=== PATIENT | male | born 1975 | race Two or more races ===

== ENCOUNTER 2016-04-14 13:52 | Emergency (ER) | payer SELFPAY ==
[~2016-04-14] VITALS: Ht 160 cm; Wt 99.8 kg
[2016-04-14] MEDS ORDERED: NKM (14:09)
[2016-04-14 14:17] VITALS: BP 203/140
[2016-04-14] MEDS ORDERED: Lisinopril 10mg tab ORAL ONE (14:30)
[2016-04-14 14:40] LABS: BASOPHILS % (AUTO) 1.7 % (0.0-2.0); EOSINOPHILS % (AUTO) 0.7 % (0.0-3.0); LYMPHOCYTES % (AUTO) 19.5 % (20.0-45.0); MEAN CORPUSCULAR HEMOGLOBIN 31.4 PG (27.0-31.0); MEAN CORPUSCULAR HGB CONC 33.8 G/DL (32.0-36.0); MEAN CORPUSCULAR VOLUME 93 FL (80-99); MEAN PLATELET VOLUME 6.7 FL (6.5-10.1); MONOCYTES % (AUTO) 7.4 % (1.0-10.0); NEUTROPHILS % (AUTO) 70.7 % (45.0-75.0); PLATELET COUNT 277 K/UL (150-450); RED BLOOD COUNT 5.45 M/UL (4.70-6.10); RED CELL DISTRIBUTION WIDTH 12.6 % (11.6-14.8); WHITE BLOOD COUNT 7.7 K/UL (4.8-10.8)
[2016-04-14 14:47] VITALS: BP 166/90
[2016-04-14 14:48] LABS: PROTHROMBIN TIME 10.1 SEC (9.30-11.50)
[2016-04-14 14:55] LABS: TROPONIN I < 0.30 ng/mL (<=0.30)
[2016-04-14 14:58] LABS: ALANINE AMINOTRANSFERASE 46 U/L (3-41); ALBUMIN/GLOBULIN RATIO 1.4 (1.0-2.7); ANION GAP 16 (5-15); ASPARTATE AMINO TRANSFERASE 32 U/L (5-40); CARBON DIOXIDE 26 mEQ/L (20-30); CHLORIDE 94 mEQ/L (98-107); CREATININE 1.1 mg/dL (0.7-1.2); GLOMERULAR FILTRATION RATE > 60 mL/min (>60); HEMOLYSIS 6; POTASSIUM 3.2 mEQ/L (3.4-4.9); SODIUM 136 mEQ/L (135-145); TOTAL PROTEIN 7.8 g/dL (6.6-8.7)
[2016-04-14 15:03] VITALS: BP 166/90
--- NOTE | 2016-04-14 15:05 | Emergency Room Report ---
History of Present Illness General Chief Complaint: Hypertension Source: Patient Present Illness HPI This patient presents at the request of his primary care physician. He states that he went to his primary care today because he has had recurrent nosebleeds starting 5 days ago. He states that the nosebleeds the last about an hour and resolved. He states that he had another nosebleed this morning and so he decided to see his primary care physician. He presented to the primary care physician's office he was found have a systolic blood pressure over 200. His primary care physician sent him to the emergency department for further evaluation. He does admit he has had recent this family stress in his life. He is denies chest pain or shortness of breath. He denies abdominal pain. He denies headache or blurry vision. He has no other complaints. He does admit that he had been started on blood pressure medications about 6 months ago and did not take them. He states that he just was careless. He has no specific reason for the noncompliance. Allergies: Coded Allergies: No Known Allergies (Unverified , 04/14/16) Patient History Past Medical History: HTN Past Surgical History: none Social History: Reports: alcohol use - occassional, Denies: drug use, smoking Reviewed Nursing Documentation: PMH: Agreed, PSxH: Agreed Nursing Documentation-PMH Past Medical History: No History, Except For Hx Hypertension: Yes Review of Systems All Other Systems: negative except mentioned in HPI Physical Exam Vital Signs Date Time Temp Pulse Resp B/P Pulse Ox O2 Delivery O2 Flow Rate FiO2 04/14/16 14:05 99.0 95 20 203/140 98 Room Air Sp02 EP Interpretation: reviewed, normal General Appearance: no apparent distress, alert, GCS 15, non-toxic Head: normocephalic, atraumatic Eyes: bilateral eye PERRL, bilateral eye normal inspection ENT: hearing grossly normal, normal pharynx, no angioedema, normal voice, other - Dried blood bilateral nares Neck: full range of motion, supple/symm/no masses Respiratory: chest non-tender, lungs clear, normal breath sounds, speaking full sentences Cardiovascular #1: regular rate, rhythm, no edema Gastrointestinal: normal bowel sounds, non tender, soft, non-distended, no guarding, no rebound Rectal: deferred Musculoskeletal: back normal, gait/station normal, normal range of motion, non- tender Neurologic: alert, oriented x3, responsive, motor strength/tone normal, sensory intact, speech normal Psychiatric: judgement/insight normal, memory normal, mood/affect normal, no suicidal/homicidal ideation Skin: normal color, no rash, warm/dry, well hydrated Medical Decision Making Diagnostic Impression: Primary Impression: Hypertension ER Course This patient presents with hypertension. He has had intermittent nosebleeds over the past weekend and saw his primary care physician. I did go ahead and do basic laboratory workup to include a CBC, CMP, cardiac enzymes and EKG to assess for end organ damage. The patient's blood pressure declined spontaneously to a systolic of 160 here in the emergency department. However, given that he was elevated here and that his primary care physician I felt that I should start oral antihypertensive medication. He was given lisinopril orally. Blood pressure at discharge was 152/80. This patient was instructed to keep her blood pressure log. He is also instructed to followup closely at his primary care physician as likely his own meds will need to be titrated further to get proper long-term control of his blood pressure. Labs Test 04/14/16 14:30 White Blood Count 7.7 K/UL (4.8-10.8) Red Blood Count 5.45 M/UL (4.70-6.10) Hemoglobin 17.1 G/DL (14.2-18.0) Hematocrit 50.6 % (42.0-52.0) Mean Corpuscular Volume 93 FL (80-99) Mean Corpuscular Hemoglobin 31.4 PG (27.0-31.0) Mean Corpuscular Hemoglobin Concent 33.8 G/DL (32.0-36.0) Red Cell Distribution Width 12.6 % (11.6-14.8) Platelet Count 277 K/UL (150-450) Mean Platelet Volume 6.7 FL (6.5-10.1) Neutrophils (%) (Auto) 70.7 % (45.0-75.0) Lymphocytes (%) (Auto) 19.5 % (20.0-45.0) Monocytes (%) (Auto) 7.4 % (1.0-10.0) Eosinophils (%) (Auto) 0.7 % (0.0-3.0) Basophils (%) (Auto) 1.7 % (0.0-2.0) Prothrombin Time 10.1 SEC (9.30-11.50) Prothromb Time International Ratio 1.0 (0.9-1.1) Activated Partial Thromboplast Time 29 SEC (23-33) Sodium Level 136 mEQ/L (135-145) Potassium Level 3.2 mEQ/L (3.4-4.9) Chloride Level 94 mEQ/L (98-107) Carbon Dioxide Level 26 mEQ/L (20-30) Anion Gap 16 (5-15) Blood Urea Nitrogen 10 mg/dL (7-23) Creatinine 1.1 mg/dL (0.7-1.2) Estimat Glomerular Filtration Rate > 60 mL/min (>60) Glucose Level 107 mg/dL (74-106) Calcium Level 9.0 mg/dL (8.6-10.2) Total Bilirubin 0.6 mg/dL (0.0-1.2) Aspartate Amino Transf (AST/SGOT) 32 U/L (5-40) Alanine Aminotransferase (ALT/SGPT) 46 U/L (3-41) Alkaline Phosphatase 62 U/L (40-129) Total Creatine Kinase 203 U/L (38-174) Creatine Kinase MB 2.3 ng/mL (< 6.7) Creatine Kinase MB Relative Index 1.1 Troponin I < 0.30 ng/mL (<=0.30) Total Protein 7.8 g/dL (6.6-8.7) Albumin 4.6 g/dL (3.5-5.2) Globulin 3.2 g/dL Albumin/Globulin Ratio 1.4 (1.0-2.7) EKG Diagnostic Results Rate: normal Rhythm: NSR ST Segments: no acute changes Rhythm Strip Diag. Results EP Interpretation: yes Rate: 90's Rhythm: NSR, no PVC's, no ectopy Last Vital Signs Date Time Temp Pulse Resp B/P Pulse Ox O2 Delivery O2 Flow Rate FiO2 04/14/16 14:47 90 20 166/90 98 Room Air 04/14/16 14:17 99.0 Disposition: HOME, SELF-CARE Condition: Improved Patient Instructions: High Blood Pressure (Hypertension) ROLLY CHAUDHARY D.O. Apr 14, 2016 15:05
[2016-04-14 15:08] LABS: CKMB 2.3 ng/mL (< 6.7)
[2016-04-14 16:12] VITALS: BP 152/84
[2016-04-14] MEDS ORDERED: LISINOPRIL10 MG ORAL (16:36)
[2016-04-14 16:55] VITALS: BP 140/62
--- NOTE | 2016-04-16 20:32 | Cardiology Report ---
APPROVED REPORT EKG Measurement Heart [id number] Normal sinus rhythm Nonspecific ST and T wave abnormality Prolonged QT Abnormal ECG
== END 2016-04-14 16:56 | disposition home or self-care (01) ==
LOC: EMR 15:12
DX: I10 Essential (primary) hypertension (principal); F10.10 Alcohol abuse, uncomplicated
CPT/HCPCS: 36415; 80053; 82550; 82553; 84484; 85025; 85610; 85730; 93005; 99283